=== PATIENT | male | born 1995 | race African-American/Black ===

== ENCOUNTER 2024-07-23 06:08 | Day surgery (SDC) | payer OTHER ==
[~2024-07-23] VITALS: Ht 190.5 cm; Wt 97.8 kg
[~2024-07-23 06:08] MED LIST: IBUP-1022 PO; UNRESOLVED CLARIFICATION ENTRY XX SCH; VENTAER INH
[2024-07-23] MEDS ORDERED: LIDOCAINE 2% 100MG/5ML SDV (FOR ANES.) As Ordered ONE (06:17)
[2024-07-23] MEDS ORDERED: propofoL 200 MG/20 ML VIAL As Ordered ONE (06:17)
[2024-07-23] MEDS ORDERED: ACETAMINOPHEN 1000MG/100ML IV BAG As Ordered ONE (06:18)
[2024-07-23] MEDS ORDERED: KETOROLAC 60MG 2ML VIAL As Ordered ONE (06:18)
[2024-07-23] MEDS ORDERED: GLYCOPYRROLATE INJ 0.2 MG/ML 2 ML VIAL As Ordered ONE (06:18)
[2024-07-23] MEDS ORDERED: ONDANSETRON 4MG 2ML VIAL As Ordered ONE (06:18)
[2024-07-23] MEDS ORDERED: fentaNYL 100 MCG/2 ML INJECTION As Ordered ONE (06:20)
[2024-07-23] MEDS ORDERED: MIDAZOLAM INJ 2MG/2ML VIAL As Ordered ONE (06:20)
[2024-07-23] MEDS ORDERED: ALBUTEROL SULFATE 2.5MG/0.5ML INH NEB SOLN INH PRN (06:35)
[2024-07-23] MEDS ORDERED: dexmedeTOMIDine (4MCG/ML)200MCG/50ML BTL (PRECEDEX) As Ordered ONE (07:17)
[2024-07-23] MEDS: ceFAZolin SOD 2 GM in IV 1 EA IV ONE (07:45)
[2024-07-23] MEDS: LIDOCAINE 2% MDV 20ML VIAL As Ordered ONE (07:48)
[2024-07-23] MEDS: GENTAMICIN SULF 80MG/2ML VIAL As Ordered ONE (08:16)
[2024-07-23 09:27] VITALS: BP 122/56; TEMP 97; O2SAT 98
== END 2024-07-23 10:25 | disposition home or self-care (01) ==
LOC: M SDC 06:08
PROVIDERS: ATTEND Podiatrist
DX: M20.12 Hallux valgus (acquired), left foot (principal); M25.561 Pain in right knee; Z88.0 Allergy status to penicillin; Z79.899 Other long term (current) drug therapy
CPT/HCPCS: 28296; 73630; 88300; C1713; J0131; J0665; J0690; J1100; J1580; J1596; J1885; J2250; J2405; J3010